=== PATIENT | male | born 1940 | race Caucasian/White ===

== ENCOUNTER 2021-09-07 15:31 | Inpatient (IN) | payer OTHER, MEDICARE, BC ==
[2021-09-07 16:09] LABS: #Basophils 0.1 10x3/uL (0.0-0.2); #Monocytes 1.3 10x3/uL (0.0-1.1); #Neutrophils 13.3 10x3/uL (1.5-8.4); %Basophils 0.7 % (0.0-2.0); %Eosinophils 0.1 % (0.0-6.0); %Monocytes 8.2 % (0.0-10.0); %Neutrophils 86.4 % (40.0-75.0); Hemoglobin 15.1 g/dL (13.5-17.5); Mean Corpuscular HGB CONC 35.2 g/dL (32.0-36.0); Mean Corpuscular Hemoglobin 31.1 pg (27.0-33.0); Mean Corpuscular Volume 88.5 fl (81.2-95.1); Mean Platelet Volume 11.6 fl (7.4-10.4); Platelet Count 149 10x3/uL (150-450); RBC Distribution Width 14.1 % (11.5-14.5); Red Blood Cell (RBC) Count 4.85 10x6/uL (4.32-5.72); White Blood Cell (WBC) Count 15.4 10x3/uL (3.5-10.5)
[2021-09-07 16:27] LABS: ALT (SGPT) 20 U/L (8-55); AST (SGOT) 27 U/L (5-34); Albumin 3.8 g/dL (3.4-4.8); Alkaline Phosphatase 62 U/L (40-110); Anion Gap 14 mmol/L (10-20); BUN (Urea Nitrogen) 11 mg/dL (8.4-25.7); Bilirubin, Total 1.7 mg/dL (0.2-1.2); CK (CPK) 119 U/L (30-200); Calc. Creatinine Clearance 0 mL/min (70-130); Calcium 8.8 mg/dL (7.8-10.44); Carbon Dioxide 25 mmol/L (23-31); Chloride 99 mmol/L (98-107); Globulin 2.5 g/dL (2.4-3.5); Glucose 144 mg/dL (83-110); Lipase 12 U/L (8-78); Protein, Total 6.3 g/dL (5.8-8.1); Sodium 134 mmol/L (136-145)
[2021-09-07] MEDS ORDERED: Cefepime 2 GM VIAL ONE (18:01)
[2021-09-07 18:22] LABS: Bilirubin Neg (Negative); Blood, Urine Negative (Negative); Clarity Clear (Clear); Glucose, Urine (Dipstick) Normal (Negative); Ketone, Urine Negative (Negative); Leukocyte 25 (Negative); Nitrite Negative (Negative); Protein, Urine (Dipstick) Negative (Neg-Trace); Urobilinogen Normal mg/dL (Less than 2)
[2021-09-07 18:26] LABS: Bacteria/HPF Rare-Few HPF (None Seen); RBC/HPF 0-3 HPF (0-3); Squamous Epithelial 0-3 HPF (0-3)
[2021-09-07 19:07] LABS: Lactic Acid 1.8 mmol/L (0.5-2.2)
[2021-09-07] MEDS ORDERED: Dextrose 50% Abboject 50 ML SYRINGE SLOW IVP PRN (19:16)
[2021-09-07] MEDS ORDERED: Dextrose 5% in Water 1,000 ML IV PRN (19:16)
[2021-09-07] MEDS ORDERED: Ondansetron PF 4 MG/2 ML Vial IVP PRN (19:17)
[2021-09-07] MEDS ORDERED: HumaLOG 300 UNITS/3 ML VIAL SC PRN (19:17)
[2021-09-07] MEDS ORDERED: Senokot S 8.6-50 MG TAB PO PRN (19:17)
[2021-09-07] MEDS ORDERED: Guaifenesin DM 100-10/5 ML UDCUP PO PRN (19:17)
[2021-09-07] MEDS ORDERED: Calcium Carbonate 500 MG ChewTAB PO PRN (19:17)
[2021-09-07] MEDS ORDERED: Acetaminophen 325 MG TAB PO PRN (19:17)
[2021-09-07] MEDS ORDERED: traMADol HCl 50 MG TAB PO PRN (19:18)
[2021-09-07] MEDS ORDERED: traZODone HCl 50 MG TAB PO PRN (19:20)
[2021-09-07] MEDS ORDERED: Lactated Ringer's 1,000 ML IV SCH (19:30)
[2021-09-07 20:48] VITALS: BMI 35.2
[2021-09-07] MEDS: ALPRAZolam 0.25 MG TAB PO PRN (22:16)
[2021-09-08] MEDS: Levothyroxine Sodium 125 MCG TAB PO SCH (05:00)
[2021-09-08 05:23] LABS: ALT (SGPT) 19 U/L (8-55); AST (SGOT) 19 U/L (5-34); Albumin 3.2 g/dL (3.4-4.8); Alkaline Phosphatase 54 U/L (40-110); Anion Gap 11 mmol/L (10-20); BUN (Urea Nitrogen) 11 mg/dL (8.4-25.7); Bilirubin, Total 1.5 mg/dL (0.2-1.2); CK (CPK) 141 U/L (30-200); Calc. Creatinine Clearance 111 mL/min (70-130); Calcium 8.6 mg/dL (7.8-10.44); Carbon Dioxide 28 mmol/L (23-31); Chloride 106 mmol/L (98-107); Globulin 2.1 g/dL (2.4-3.5); Glucose 128 mg/dL (83-110); Potassium 3.7 mmol/L (3.5-5.1); Protein, Total 5.3 g/dL (5.8-8.1); Sodium 141 mmol/L (136-145)
[2021-09-08 05:33] LABS: #Basophils 0.1 10x3/uL (0.0-0.2); #Eosinphils 0.1 10x3/uL (0.0-0.5); #Monocytes 1.2 10x3/uL (0.0-1.1); #Neutrophils 8.8 10x3/uL (1.5-8.4); %Basophils 0.9 % (0.0-2.0); %Eosinophils 0.8 % (0.0-6.0); %Monocytes 10.1 % (0.0-10.0); %Neutrophils 75.7 % (40.0-75.0); Hemoglobin 14.1 g/dL (13.5-17.5); Mean Corpuscular HGB CONC 34.4 g/dL (32.0-36.0); Mean Corpuscular Hemoglobin 31.3 pg (27.0-33.0); Mean Corpuscular Volume 90.9 fl (81.2-95.1); Platelet Count 136 10x3/uL (150-450); RBC Distribution Width 14.5 % (11.5-14.5); Red Blood Cell (RBC) Count 4.51 10x6/uL (4.32-5.72); White Blood Cell (WBC) Count 11.7 10x3/uL (3.5-10.5)
[2021-09-08] MEDS ORDERED: Pregabalin 75 MG CAP PO SCH (09:00)
[2021-09-08] MEDS ORDERED: cefTRIAXone\\ROCEPHIN 1 GM in Sodium Chloride 0.9% 100 ML IVPB SCH (09:00)
[2021-09-08] MEDS ORDERED: Pantoprazole 40 MG GRANULES PACKET PO SCH (09:00)
[2021-09-08] MEDS: metFORMIN 500 MG TAB PO SCH ×2 (09:32→17:16)
[2021-09-08 15:39] LABS: SARS-CoV-2 PCR by NAA Not Detected (NotDetected)
[2021-09-08 18:37] LABS: SARS-CoV-2 NAA Rapid Test Not Detected (NotDetected)
[2021-09-08] MEDS: ALPRAZolam 0.25 MG TAB PO PRN (20:41)
[2021-09-08] MEDS: Pregabalin 75 MG CAP PO SCH (20:42)
[2021-09-08] MEDS ORDERED: metFORMIN XR 500 MG TAB PO SCH (21:00)
[2021-09-08] MEDS ORDERED: metFORMIN 500 MG TAB PO SCH (21:00)
[2021-09-09 02:18] LABS: Hemoglobin A1c 6.2 % (4.0-6.0)
[2021-09-09] MEDS ORDERED: hydrALAZINE 20 MG/ML VIAL SLOW IVP PRN (03:33)
[2021-09-09] MEDS: Levothyroxine Sodium 125 MCG TAB PO SCH (05:10)
[2021-09-09 05:34] LABS: PTT 26.6 sec (22.0-33.0); Prothrombin Time 10.5 sec (9.5-12.1)
[2021-09-09 05:35] LABS: ALT (SGPT) 18 U/L (8-55); AST (SGOT) 17 U/L (5-34); Albumin 3.6 g/dL (3.4-4.8); Alkaline Phosphatase 57 U/L (40-110); Anion Gap 13 mmol/L (10-20); BUN (Urea Nitrogen) 12 mg/dL (8.4-25.7); Bilirubin, Total 1.3 mg/dL (0.2-1.2); CK (CPK) 99 U/L (30-200); Calc. Creatinine Clearance 109 mL/min (70-130); Calcium 8.9 mg/dL (7.8-10.44); Carbon Dioxide 30 mmol/L (23-31); Cardiac Risk 3.8 (Less than 4.5); Chloride 103 mmol/L (98-107); Cholesterol 140 mg/dl (< 200 Desired); Globulin 2.8 g/dL (2.4-3.5); Glucose 117 mg/dL (83-110); HDL Cholesterol 37 mg/dL (>60 Neg Risk); LDL Cholesterol, Calculated 84 mg/dL; Potassium 4.4 mmol/L (3.5-5.1); Protein, Total 6.4 g/dL (5.8-8.1); Sodium 142 mmol/L (136-145); Triglycerides 97 mg/dL (Less than 150)
[2021-09-09 06:04] LABS: #Basophils 0.1 10x3/uL (0.0-0.2); #Eosinphils 0.3 10x3/uL (0.0-0.5); #Monocytes 0.8 10x3/uL (0.0-1.1); #Neutrophils 6.6 10x3/uL (1.5-8.4); %Basophils 1.2 % (0.0-2.0); %Lymphocytes 14.7 % (18.0-47.0); %Monocytes 8.5 % (0.0-10.0); %Neutrophils 71.4 % (40.0-75.0); Hemoglobin 15.4 g/dL (13.5-17.5); Mean Corpuscular HGB CONC 33.6 g/dL (32.0-36.0); Mean Corpuscular Hemoglobin 30.9 pg (27.0-33.0); Mean Corpuscular Volume 92.2 fl (81.2-95.1); Mean Platelet Volume 11.7 fl (7.4-10.4); Platelet Count 136 10x3/uL (150-450); RBC Distribution Width 14.4 % (11.5-14.5); Red Blood Cell (RBC) Count 4.98 10x6/uL (4.32-5.72); White Blood Cell (WBC) Count 9.2 10x3/uL (3.5-10.5)
[2021-09-09] MEDS: Pregabalin 75 MG CAP PO SCH (08:45)
[2021-09-09] MEDS ORDERED: Clopidogrel Bisulfate 75 MG TAB PO SCH (09:00)
[2021-09-09] MEDS ORDERED: Azithromycin 250 MG TAB PO SCH (11:00)
[2021-09-09] MEDS ORDERED: cefTRIAXone\\ROCEPHIN 2 GM in Sodium Chloride 0.9% 100 ML IVPB SCH (11:00)
[2021-09-09 13:01] VITALS: BP 163/77; TEMP 97
[2021-09-09] MEDS: Ventolin HFA Inhaler 60 PUFF INHALER INH SCH ×2 (13:32→13:34)
== END 2021-09-09 15:35 | disposition home or self-care (01) | DRG 922 ==
LOC: CSHERS 15:31 → CSHTELE 20:39
PROVIDERS: ADMIT Student in an Organized Health Care Education/Training Program; ATTEND Family Medicine
DX: T67.01XA Heatstroke and sunstroke, initial encounter (principal); G93.41 Metabolic encephalopathy; J18.9 Pneumonia, unspecified organism; N39.0 Urinary tract infection, site not specified; X58.XXXA Exposure to other specified factors, initial encounter; I25.10 Atherosclerotic heart disease of native coronary artery without angina pectoris; F41.9 Anxiety disorder, unspecified; K21.9 Gastro-esophageal reflux disease without esophagitis; G89.29 Other chronic pain; G47.33 Obstructive sleep apnea (adult) (pediatric); E89.0 Postprocedural hypothyroidism; E86.0 Dehydration; E11.65 Type 2 diabetes mellitus with hyperglycemia; E11.51 Type 2 diabetes mellitus with diabetic peripheral angiopathy without gangrene; F41.0 Panic disorder [episodic paroxysmal anxiety]; Z20.822 Contact with and (suspected) exposure to COVID-19; Y92.89 Other specified places as the place of occurrence of the external cause; Z88.5 Allergy status to narcotic agent; Z98.890 Other specified postprocedural states; Z87.891 Personal history of nicotine dependence; Z79.84 Long term (current) use of oral hypoglycemic drugs; Z79.899 Other long term (current) drug therapy
CPT/HCPCS: 36415; 36416; 70450; 71045; 71046; 72125; 80053; 80061; 81003; 81015; 82550; 83036; 83605; 83690; 83735; 84443; 85025; 85610; 85730; 87040; 87086; 93005; 94760; J0360; J0692; J0696; J3370; J3490; J7120; U0003; U0005

== ENCOUNTER 2021-10-11 08:21 | Observation (INO) | payer MEDICARE, BC ==
[2021-10-11 09:11] LABS: #Basophils 0.1 10x3/uL (0.0-0.2); #Eosinphils 0.1 10x3/uL (0.0-0.5); #Monocytes 0.8 10x3/uL (0.0-1.1); #Neutrophils 6.2 10x3/uL (1.5-8.4); %Basophils 1.2 % (0.0-2.0); %Eosinophils 0.6 % (0.0-6.0); %Lymphocytes 21.3 % (18.0-47.0); %Monocytes 8.3 % (0.0-10.0); Hemoglobin 16.6 g/dL (13.5-17.5); Mean Corpuscular HGB CONC 34.3 g/dL (32.0-36.0); Mean Corpuscular Volume 90.5 fl (81.2-95.1); Mean Platelet Volume 11.4 fl (7.4-10.4); Platelet Count 154 10x3/uL (150-450); RBC Distribution Width 13.2 % (11.5-14.5); Red Blood Cell (RBC) Count 5.35 10x6/uL (4.32-5.72)
[2021-10-11 09:20] LABS: ALT (SGPT) 27 U/L (8-55); AST (SGOT) 27 U/L (5-34); Albumin 4.2 g/dL (3.4-4.8); Alkaline Phosphatase 73 U/L (40-110); Anion Gap 18 mmol/L (10-20); BUN (Urea Nitrogen) 9 mg/dL (8.4-25.7); Bilirubin, Total 1.1 mg/dL (0.2-1.2); CK (CPK) 148 U/L (30-200); Calc. Creatinine Clearance 0 mL/min (70-130); Carbon Dioxide 24 mmol/L (23-31); Chloride 101 mmol/L (98-107); Estimated GFR 73; Glucose 148 mg/dL (83-110); Magnesium 1.9 mg/dL (1.6-2.6); Potassium 4.4 mmol/L (3.5-5.1); Protein, Total 7.2 g/dL (5.8-8.1); Sodium 139 mmol/L (136-145)
[2021-10-11] MEDS ORDERED: Ondansetron PF 4 MG/2 ML Vial ONE (09:29)
[2021-10-11 10:13] LABS: Bilirubin Neg (Negative); Blood, Urine 150 (Negative); Clarity Clear (Clear); Glucose, Urine (Dipstick) Normal (Negative); Ketone, Urine Negative (Negative); Leukocyte Negative (Negative); Nitrite Negative (Negative); Protein, Urine (Dipstick) 30 mg/dl (Neg-Trace); Urobilinogen Normal mg/dL (Less than 2)
[2021-10-11 10:19] LABS: Bacteria/HPF None Seen HPF (None Seen); Squamous Epithelial 0-3 HPF (0-3); WBC/HPF 0-3 HPF (0-3)
[2021-10-11 11:45] LABS: SARS-CoV-2 NAA Rapid Test Not Detected (NotDetected)
[2021-10-11] MEDS ORDERED: Acetaminophen 325 MG TAB PO PRN (12:37)
[2021-10-11] MEDS ORDERED: Ondansetron ODT 4 MG TAB PO PRN (12:37)
[2021-10-11] MEDS ORDERED: Acetaminophen 650 MG Suppository PR PRN (12:37)
[2021-10-11] MEDS ORDERED: Ondansetron PF 4 MG/2 ML Vial IVP PRN (12:37)
[2021-10-11] MEDS ORDERED: Dextrose 50% Abboject 50 ML SYRINGE SLOW IVP PRN (12:43)
[2021-10-11] MEDS ORDERED: Insulin Regular 300 UNITS/3 ML VIAL SC PRN ×2 (12:43)
[2021-10-11] MEDS ORDERED: Dextrose 5% in Water 1,000 ML IV PRN (12:43)
[2021-10-11 14:20] VITALS: BMI 34.1
[2021-10-11 14:58] LABS: Syphilis Antibody Nonreactive (Nonreactive); Syphilis Antibody Index 0.03 S/CO (<1.00 Non-Reactive)
[2021-10-11] MEDS ORDERED: Lidocaine 5% Patch TD SCH (18:00)
[2021-10-11 19:56] LABS: Hemoglobin A1c 6.2 % (4.0-6.0)
[2021-10-11] MEDS: Famotidine 20 MG TAB PO SCH (21:06)
[2021-10-11] MEDS ORDERED: Oxybutynin 5 MG TAB PO SCH (21:30)
[2021-10-11] MEDS ORDERED: Ketorolac Tromethamine 30 MG/ML VIAL IVP SCH (23:45)
[2021-10-12] MEDS ORDERED: Lorazepam 2 MG/ML VIAL SLOW IVP SCH (00:45)
[2021-10-12] MEDS ORDERED: Pramipexole Di-HCl 0.25 MG TAB PO SCH (03:45)
[2021-10-12 04:32] LABS: Anion Gap 15 mmol/L (10-20); BUN (Urea Nitrogen) 9 mg/dL (8.4-25.7); Calc. Creatinine Clearance 91 mL/min (70-130); Calcium 8.8 mg/dL (7.8-10.44); Carbon Dioxide 27 mmol/L (23-31); Chloride 103 mmol/L (98-107); Estimated GFR 65; Glucose 126 mg/dL (83-110); Potassium 4.1 mmol/L (3.5-5.1); Sodium 141 mmol/L (136-145)
[2021-10-12 04:45] LABS: #Basophils 0.1 10x3/uL (0.0-0.2); #Eosinphils 0.1 10x3/uL (0.0-0.5); #Monocytes 0.9 10x3/uL (0.0-1.1); #Neutrophils 4.7 10x3/uL (1.5-8.4); %Basophils 1.9 % (0.0-2.0); %Eosinophils 1.9 % (0.0-6.0); %Lymphocytes 19.3 % (18.0-47.0); %Monocytes 12.1 % (0.0-10.0); %Neutrophils 64.3 % (40.0-75.0); Hemoglobin 14.9 g/dL (13.5-17.5); Mean Corpuscular HGB CONC 33.7 g/dL (32.0-36.0); Mean Corpuscular Volume 92.1 fl (81.2-95.1); Mean Platelet Volume 11.3 fl (7.4-10.4); Platelet Count 141 10x3/uL (150-450); RBC Distribution Width 13.4 % (11.5-14.5); White Blood Cell (WBC) Count 7.3 10x3/uL (3.5-10.5)
[2021-10-12] MEDS ORDERED: Levothyroxine Sodium 125 MCG TAB PO SCH (06:00)
[2021-10-12] MEDS ORDERED: Transdermal Patch Removal TOP SCH (06:00)
[2021-10-12] MEDS ORDERED: Clopidogrel Bisulfate 75 MG TAB PO SCH (09:00)
[2021-10-12] MEDS: Famotidine 20 MG TAB PO SCH (09:32)
[2021-10-12] MEDS ORDERED: Amlodipine 10 MG TAB PO SCH (12:45)
[2021-10-12 17:26] VITALS: BP 130/68; TEMP 97
[2021-10-13] MEDS ORDERED: Amlodipine 10 MG TAB PO SCH (09:00)
== END 2021-10-12 17:35 | disposition home or self-care (01) ==
LOC: CSHERS 08:21 → CSHTELE 12:45
PROVIDERS: ADMIT Internal Medicine; ATTEND Internal Medicine
DX: R41.82 Altered mental status, unspecified (principal); E11.51 Type 2 diabetes mellitus with diabetic peripheral angiopathy without gangrene; I10 Essential (primary) hypertension; E78.5 Hyperlipidemia, unspecified; E03.9 Hypothyroidism, unspecified; G89.29 Other chronic pain; M54.9 Dorsalgia, unspecified; G47.33 Obstructive sleep apnea (adult) (pediatric); I25.10 Atherosclerotic heart disease of native coronary artery without angina pectoris; Z87.891 Personal history of nicotine dependence; Z79.02 Long term (current) use of antithrombotics/antiplatelets; Z79.84 Long term (current) use of oral hypoglycemic drugs; Z79.890 Hormone replacement therapy; Z79.899 Other long term (current) drug therapy; Z88.5 Allergy status to narcotic agent; Z20.822 Contact with and (suspected) exposure to COVID-19
CPT/HCPCS: 51701; 70450; 71045; 80048; 82550; 82607; 82746; 82962 ×2; 83036; 83735; 84484; 85025; 86780; 93005; 94760 ×2; 96361; 96374; 99285; U0002; 36415; 36416; 80053; 81003; 81015; 84443; 96375; G0378; J1885; J2060; J2405

== ENCOUNTER 2022-06-24 10:22 | Outpatient (CLI) | payer MEDICARE, BC | END 2022-06-24 10:23 | disposition home or self-care (01) | LOC: CSHULT 10:22 | PROVIDERS: ATTEND Otolaryngology Otolaryngic Allergy | DX: E04.1 Nontoxic single thyroid nodule (principal); Z90.89 Acquired absence of other organs | CPT/HCPCS: 76536 ==